=== PATIENT | female | born 1955 ===

== ENCOUNTER 2019-04-09 09:54 | Inpatient (IN) | payer MEDICARE, BC ==
[~2019-04-09] VITALS: Ht 163.8 cm; Wt 84.4 kg
--- NOTE | 2019-04-09 10:02 | NUR ---
PATIENT ADMITTED TO CUSTODIAL UNIT FROM DR. CABAN OFFICE FOR SUICIDAL THOUGHTS. SHE IS ALERT AND ORIENTED TO PERSON, PLACE, AND TIME. SHE FEELS VERY DEPRESSED AND LIKE HER LIFE HAS BEEN A ROLLER COASTER RIDE. SHE JUST WANTS TO SLEEP AND HOPES IT ALL WILL GO AWAY. PATIENT STATES SHE IS A FULL CODE. HER CODE WORD IS ESTHER.
--- NOTE | 2019-04-09 11:00 | NUR ---
DR. ARREDONDO NOTIFIED AND SITTER ORDERED. SITTER AT BEDSIDE. NOTIFIED CHARGE NURSE AND ATTENDING IN REGARDS TO ASSESSMENT FINDINGS. RESOURCES AND SAFETY PLAN INITIATED.
[2019-04-09] MEDS ORDERED: ATIVAN1 MG PO (11:27)
[2019-04-09] MEDS ORDERED: OMEPRAZOLE20 M1 PO (11:28)
[2019-04-09] MEDS ORDERED: LAMICTAL100 MG PO (11:28)
[2019-04-09] MEDS ORDERED: LAMICTAL200 M1 PO (11:28)
[2019-04-09] MEDS ORDERED: LATUDA40 MG PO (11:29)
[2019-04-09] MEDS ORDERED: LEXAPRO20 MG PO (11:29)
[2019-04-09 11:54] VITALS: BP 140/84; BMI 31.5
[2019-04-09 15:50] LABS: APPEARANCE CLEAR (CLEAR); BILIRUBIN NEGATIVE (NEGATIVE); COLOR YELLOW (YELLOW); GLUCOSE NEGATIVE (NEGATIVE); KETONE NEGATIVE (NEGATIVE); NITRITE NEGATIVE (NEGATIVE); PROTEIN NEGATIVE (NEGATIVE); UROBILINOGEN NORMAL (NORMAL)
[2019-04-09 15:51] LABS: BASOPHILS 0.5 % (0-2); EOSINOPHILS 1.5 % (0-7); HEMOGLOBIN 14.4 g/dL (12-16); LYMPHOCYTES 35.9 % (15-50); MCH 31.5 pg (26.0-34.0); MCHC 34.3 g/dL (31.0-37.0); MCV 91.9 fL (80.0-100.0); MEAN PLATELET VOLUME 9.1 fL (7.4-10.4); MONOCYTES 9.5 % (2-11); NEUTROPHILS 52.6 % (40-80); PLATELET COUNT 274 10x3/uL (130-400); RBC 4.57 10x6/uL (4.00-5.40); RDW 13.6 % (11.5-14.5); WBC 7.3 10x3/uL (4.8-10.8)
[2019-04-09 16:42] LABS: ALBUMIN 3.9 g/dL (3.4-5.0); ANION GAP 10.7 mmol/L (8-16); BILIRUBIN - TOTAL 0.48 mg/dL (0.2-1.3); CALCIUM 8.9 mg/dL (8.5-10.1); CARBON DIOXIDE 31.5 mmol/L (21.0-32.0); CHOL - HDL RATIO 2.4 ratio (2.3-4.1); LDL-HDL RATIO 1.2 ratio (1.5-3.5); POTASSIUM - SERUM 4.2 mmol/L (3.5-5.1); PROTEIN - SERUM 6.7 g/dL (6.4-8.2); THYROID STIMULATING HORMONE 0.75 uIU/mL (0.36-3.74)
[2019-04-09 20:31] VITALS: BP 135/80
--- NOTE | 2019-04-10 02:13 | NUR ---
B) patient is alert and oriented to person, place and time, no suicidal statements this shift, calm and cooperative, I) Administered scheduled medications as ordered, monitored for safety R) mediation compliant, sleeping quietly in her bed, P) Continue plan of care.
[2019-04-10 07:14] LABS: RAPID PLASMA REAGIN Non Reactive (Non Reactive)
[2019-04-10 08:38] VITALS: BP 102/80
--- NOTE | 2019-04-10 10:29 | NUR ---
PT IS ALERT AND ORIENTED X 4/ PT DENIES ANY SI AT THSI TIME. CALM AND COOPERATIVE WITH ASSESSMENT. MED COMPLIANT. PRESCRIBED MEDS PROVIDED ORDERED. NO BEHAVIORS NOTED AT THIS TIME. PT RESTING IN RECLINING CHAIR WITH STAFF PRESENT FOR SAFETY. WILL CPOC.
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
[2019-04-10 20:00] VITALS: BP 86/43
--- NOTE | 2019-04-10 21:11 | NUR ---
RECEIVED IN PATIENT ROOM. GETTING READY FOR BED. CALM AND COOPERATIVE WITH CARE AND ASSESSMENT. DENIES THOUGHTS OF SELF HARM AT THIS TIME. REDIRECT AND REORIENT NEEDED. RESTING IN BED WITH EYES CLOSED AT THIS TIME. CONTINUE PLAN OF CARE.
--- NOTE | 2019-04-11 10:08 | PN ---
PATIENT:ANABELL PATTERSON MEDICAL RECORD: [id number] LOCATION:[facility] ADMISSION DATE: 04/09/19 PROGRESS NOTE DATE OF SERVICE: 04/10/2019 SUBJECTIVE: The patient's case was discussed with staff. She has no new complaint. OBJECTIVE: The patient tells me that she has not had suicidal thoughts today. She says that the Klonopin is helping that she has been sleeping a great deal. ASSESSMENT: No change in diagnoses. PLAN: Current medicines have been reviewed and will be maintained. Long-term prognosis is guarded. TRANSINT:[id number] Voice Confirmation ID: [id number] DOCUMENT ID: [id number] BRISEIDA ARREDONDO MD at 1008 CC: [id number] DICTATION DATE: 04/10/19 1244 POWER TRUCK DRIVER: 04/10/19 1251 ADM IN [address] [id number] [place] [address]
[2019-04-11 10:46] VITALS: BP 110/81
[2019-04-11 12:09] VITALS: Ht 163.8 cm; Wt 84.4 kg
--- NOTE | 2019-04-11 15:38 | NUR ---
RECEIVED PT IN DINING ROOM AT B'FAST TIME, ALERT, CALM, QUIET AND WITHDRAWN. MEDS ADMIN PER ORDERS WITH COMPLETE COMPLIANCE NOTED. COOPERATIVE WITH GROUP AND STAFF REQUESTS. CONT POC DIRECTED.
[2019-04-11 20:00] VITALS: BP 130/71
--- NOTE | 2019-04-11 22:06 | NUR ---
B.) PT IS ALERT AND ORIENTED TO SELF AND SITUATION. SHE STATES THAT SHE IS ANXIOUS. I.) PROVIDED ATIVAN FOR ANXIETY AND PM MEDICATIONS. R.) COMPLIANT WITH ALL MEDICATIONS. STATES A DECREASE IN ANXIETY. P.) CONTINUE PLAN OF CARE
--- NOTE | 2019-04-12 09:10 | NUR ---
REC'D PT SITTING IN CHAIR IN DAY AREA. RESP EVEN AND NONLABORED. NO ACUTE DISTRESS NOTED. NO BEHAVIORS NOTED AT THIS TIME. PT COMPLAINT WITH MEDS, ASSESSMENTS AND VITALS. AMBULATES. INDEPENDENT WITH ADLS. WILL CONT PLAN OF CARE.
[2019-04-12 09:17] VITALS: BP 127/76
--- NOTE | 2019-04-12 19:40 | NUR ---
REC'D PATIENT SITTING IN THE DAYROOM. NOT INTERACTING WITH PEERS. ORIENTED X3. RELATED WAS HOSPITALIZED FOR SUICIDAL IDEATION. DENIED HAVING A PLAN. RELATES IS BIPOLAR AND HAD BEEN ON A HIGH AND CAME CRASHING DOWN. ADMINISTER MEDS PER ORDERS Q SHIFT AND MONITOR COMPLIANCE. OBTAIN VERBAL NO HARM CONTRACT Q SHIFT. MED COMPLIANT. PATIENT MADE VERBAL NO HARM CONTRACT. CONTINUE POC AND PROVIDE SAFE ENVIRONMENT.
[2019-04-12 20:41] VITALS: BP 101/74
[2019-04-13 08:15] VITALS: BP 131/85
--- NOTE | 2019-04-13 08:27 | NUR ---
PATIENT EATING BREAKFAST AT THIS TIME. RESP EVEN AND NONLABORED. NO ACUTE DISTRESS NOTED. ORIENTED X3. PLESANT WITH STAFF AND PEERS. PT COMPLAINT WITH MED, ASSESSMENTS AND VITALS. PT SLEPT 7.75 HOURS. WILL CONT PLAN OF CARE.
[2019-04-13 09:20] VITALS: BP 131/85
--- NOTE | 2019-04-13 09:44 | NUR ---
NURSE ASKED IF PATIENT WAS STILL HAVING SUIDICAL THOUGHTS. PATIENT HESITATED AND STATED I DONT WANT TO SAY YES. I THINK IT WAS MORE THE STRESS OF EVERYTHING GOING ON NOT MUCH ME WANTING TO KILL MYSELF. I'M NOT. I WANT TO GO HOME."
--- NOTE | 2019-04-13 12:39 | PN ---
PATIENT:ANABELL PATTERSON MEDICAL RECORD: [id number] LOCATION:[facility] ADMISSION DATE: 04/09/19 PROGRESS NOTE DATE OF SERVICE: 04/12/2019 SUBJECTIVE: The patient's case was discussed with staff. She has no new complaint. OBJECTIVE: The patient is significantly calmer. Her mood has improved and I am anticipating she can be discharged soon. TRANSINT:[id number] Voice Confirmation ID: [id number] DOCUMENT ID: [id number] BRISEIDA ARREDONDO MD at 1239 CC: [id number] DICTATION DATE: 04/12/19 1806 PIGMENT AND LACQUER MIXER: 04/12/19 1830 ADM IN [id number] [place] [address]
--- NOTE | 2019-04-13 12:39 | PN ---
PATIENT:ANABELL PATTERSON MEDICAL RECORD: [id number] LOCATION:[facility] ADMISSION DATE: 04/09/19 PROGRESS NOTE DATE OF SERVICE: 04/11/2019 SUBJECTIVE: The patient's case was discussed with staff. She has no new complaint. OBJECTIVE: The patient is in good behavioral control. She emphatically denies that she would seek to harm herself or others. She has very limited insight about her situation. ASSESSMENT: No change in diagnoses. PLAN: Current medicines have been reviewed. Long-term prognosis is guarded. TRANSINT:[id number] Voice Confirmation ID: [id number] DOCUMENT ID: [id number] BRISEIDA ARREDONDO MD at 1239 CC: [id number] DICTATION DATE: 04/11/19 1022 BRICK SORTER: 04/11/19 1043 ADM IN [facility] [address] [place] [address]
[2019-04-13] MEDS ORDERED: KLONOPIN0.5 MG PO (12:46)
[2019-04-13] MEDS ORDERED: VITAMIN D31000 UNI2 PO (12:47)
--- NOTE | 2019-04-13 15:45 | NUR ---
FAXED THE D/C ORDER AND MAR TO '[facility], DID GO OVER THE MEDS WITH THE PATIENT AND ENCOURAGED THE PATIENT TO MAKE AN APPOINTMENT WITH BOTH OF HER MD'S WITHIN ONE WEEK FROM D/C. THE PATIENT HAS BEEN D/C'D FROM [facility].
--- NOTE | 2019-04-13 15:59 | NUR ---
Oliverio CALLED IN TO [facility] THE PATIENT WENT TO PICK IT UP, BUT THERE WAS NOT AN E-SCRIPT. THERE MUST BE A COMPUTER GLITCH THE [facility] MAR SHOWS AN E-SCRIPT WAS WRITTEN.
--- NOTE | 2019-04-14 11:14 | PN ---
PATIENT:ANABELL PATTERSON MEDICAL RECORD: [id number] LOCATION:[facility] ADMISSION DATE: 04/09/19 PROGRESS NOTE DATE OF SERVICE: 04/13/2019 SUBJECTIVE: The patient's case was discussed with staff. She has no new complaint. OBJECTIVE: The patient is in good behavioral control. She denies intent to harm herself or others. She is requesting discharge. ASSESSMENT: No change in diagnoses. PLAN: The patient will be transitioned out of the hospital today. Her long-term prognosis is guarded. TRANSINT:[id number] Voice Confirmation ID: [id number] DOCUMENT ID: [id number] BRISEIDA ARREDONDO MD at 1114 CC: [id number] DICTATION DATE: 04/13/19 1245 ASSEMBLER DC FIELD RING: 04/13/19 1252 DIS IN 04/13/19 [id number] [place] [address]
--- NOTE | 2019-04-23 15:20 | DS ---
PATIENT:ANABELL PATTERSON :51 MEDICAL RECORD: [id number] DISCHARGE SUMMARY ADMISSION DATE: 04/09/19 DISCHARGE DATE: 04/13/19 IDENTIFYING DATA: The patient is 63 years old and she is admitted to the hospital on a voluntary basis because of depression. The patient had presented to her outpatient psychiatrist's office and was extremely depressed. The psychiatrist who knows her well, felt that she was a potential risk for harm and referred her for treatment. The patient endorses numerous neurovegetative depressive symptoms and feels helpless, hopeless, isolated, and withdrawn. She denied active thoughts of harming herself. She did have acute stressors relating to a son who is a preschool substitute teacher who was arrested for having methamphetamine at the school and another son who is apparently either an alcoholic, drug addict, or both who has recently relapsed. HOSPITAL COURSE: The patient was admitted to the hospital and fully evaluated from both a medical, psychological, and social standpoint. She was treated with both mood stabilizing and antidepressant medication. She showed improvement through the course of the hospitalization and was referred to outpatient care. DISCHARGE DIAGNOSES: AXIS I: 1. Bipolar disorder type 2. 2. Major depression, severe, recurrent without psychotic features. 3. Posttraumatic stress disorder. AXIS II: Cluster B personality traits. AXIS III: Gastric bypass surgery. AXIS IV: Severe stressors. AXIS V: Global assessment of functioning is 45. PLAN: At the time of discharge, the patient had no evidence of acute or direct dangerousness to herself or others and was tolerating her medicines well. She was referred back to outpatient care. TRANSINT:[id number] Voice Confirmation ID: [id number] DOCUMENT ID: [id number] BRISEIDA ARREDONDO MD at 1520 CC: [id number] DICTATION DATE: 04/22/19 1147 GRAPHICS MANAGER: 04/22/19 1200 DIS IN 04/13/19 [address] [place] [address]
== END 2019-04-13 16:03 | disposition home or self-care (01) | DRG 885 ==
LOC: D.PSYCH 09:54
PROVIDERS: ADMIT Psychiatry & Neurology Psychiatry; ATTEND Psychiatry & Neurology Psychiatry
DX: F31.81 Bipolar II disorder (principal); F43.10 Post-traumatic stress disorder, unspecified; Z98.84 Bariatric surgery status; K21.9 Gastro-esophageal reflux disease without esophagitis; M19.90 Unspecified osteoarthritis, unspecified site; F60.89 Other specific personality disorders